=== PATIENT | female | born 1980 | race Caucasian/White ===

== ENCOUNTER 2022-06-04 05:56 | Emergency (ER) | payer SELFPAY ==
[2022-06-04 06:04] VITALS: BP 160/70; PULSE 92; RESP 18; TEMP 97.9; BMI 46.0
[2022-06-04] MEDS ORDERED: valACYclovir HCL 1000 MG TABLET PO ONE (07:53)
[2022-06-04] MEDS ORDERED: valACYclovir HCL 500 MG TABLET (FP) ONE (08:02)
== END 2022-06-04 08:26 | disposition home or self-care (01) ==
LOC: JER 05:56
DX: B02.9 Zoster without complications (principal)
CPT/HCPCS: 99283-25